=== PATIENT | male | born 2005 | race Caucasian/White ===

== ENCOUNTER 2025-04-30 23:14 | Emergency (ER) | payer OTHER ==
[2025-04-30] MEDS ORDERED: predniSONE 10 MG TAB ONE (23:27)
[2025-04-30] MEDS ORDERED: predniSONE 20 MG TAB ONE (23:27)
[2025-05-01] MEDS ORDERED: Famotidine 20 MG TAB ONE (00:02)
== END 2025-04-30 23:51 | disposition home or self-care (01) ==
LOC: MADERS 23:14
DX: T78.19XA Other adverse food reactions, not elsewhere classified, initial encounter (principal); Z79.899 Other long term (current) drug therapy
CPT/HCPCS: 99283; J7512